=== PATIENT | female | born 1945 | race Caucasian/White ===

== ENCOUNTER 2019-01-30 18:15 | Emergency (ER) | payer MEDICARE ==
[~2019-01-30] VITALS: Ht 177.8 cm; Wt 86.4 kg
[2019-01-30] MEDS ORDERED: DIOVAN HCT PO (18:46)
[2019-01-30] MEDS ORDERED: RANITIDINE150 M1 PO (18:47)
[2019-01-30] MEDS ORDERED: ATORVASTATIN CA40 MG PO (18:47)
[2019-01-30] MEDS ORDERED: JANUVIA100 MG PO (18:48)
[2019-01-30] MEDS ORDERED: FLUOXETINE40 MG PO (18:48)
[2019-01-30] MEDS ORDERED: LUMIGAN0.01 % OD (18:49)
[2019-01-30] MEDS ORDERED: TIMOLOL 0.5%5 ML OD (18:50)
[2019-01-30 18:58] LABS: HEMOGLOBIN 12.4 g/dl (12.0-16.0); IMMATURE GRANULOCYTES 1.2 % (0.0-5.0); MEAN CELL VOLUME 95.8 fL CALC (80.0-100.0); MEAN CORPUSCULAR HGB 30.5 pG CALC (26.0-32.0); MEAN CORPUSCULAR HGB CONC 31.8 g/L CALC (32.0-36.0); NEUT# 7.4 thou/uL (2.00-7.15); RED BLOOD COUNT 4.07 mill/uL (4.20-5.60); RED CELL DISTRI WIDTH 15.9 % (11.5-15.5)
[2019-01-30 19:05] LABS: ALKALINE PHOSPHATASE 87 u/l (38-126); ANION GAP 16 (6-22 (CALC)); BILIRUBIN, TOTAL 1.3 mg/dL (0.0-1.4); BUN 16 mg/dL (8-23); BUN/CREATININE RATIO 22 (12-20 (CALC)); CARBON DIOXIDE 24 mmol/l (22-30); CHLORIDE 101 mmol/l (95-108); CREATININE 0.8 mg/dL (0.5-1.0); GFR > 60 ML/MIN (>=60 (CALC)); GFR FOR AFR.AMER. > 60 ML/MIN (>=60 (CALC)); LIPASE 106 u/l (23-300); POTASSIUM 4.1 mmol/l (3.5-5.1); SGOT/AST 18 u/l (9-36); SODIUM 137 mmol/l (137-146); TOTAL PROTEIN 6.5 g/dL (6.3-8.2)
[2019-01-30 19:34] LABS: URINE BILIRUBIN - DIPSTICK NEGATIVE (NEGATIVE); URINE BLOOD DIPSTICK LARGE (NEGATIVE); URINE COLOR YELLOW; URINE GLUCOSE - DIPSTICK NEGATIVE (NEGATIVE); URINE KETONE TRACE mg/dL (NEGATIVE); URINE LEUK ESTERASE TRACE (NEGATIVE); URINE NITRITE - DIPSTICK NEGATIVE (Negative); URINE PH 5.5 (4.5-8.0); URINE PROTEIN - DIPSTICK TRACE mg/dL (NEG-TRACE); URINE SPECIFIC GRAVITY 1.025; URINE UROBILINOGEN - DIPSTICK 0.2 E.U./dL (0.2)
[2019-01-30 19:44] LABS: URINE RBC TNTC RBC/hpf (0-5); URINE SQUAMOUS EPITHELIAL CELL FEW EPI/hpf (0-FEW)
[2019-01-30] MEDS ORDERED: CARAFATE1 GM PO (21:08)
[2019-01-30] MEDS ORDERED: REGLAN10 MG PO (21:08)
[2019-01-30 21:13] VITALS: BP 143/73
== END 2019-01-30 21:24 | disposition home or self-care (01) ==
LOC: ED 18:15
DX: R10.13 Epigastric pain (principal); R11.2 Nausea with vomiting, unspecified; R59.0 Localized enlarged lymph nodes; E11.9 Type 2 diabetes mellitus without complications; I10 Essential (primary) hypertension; K21.9 Gastro-esophageal reflux disease without esophagitis; C91.10 Chronic lymphocytic leukemia of B-cell type not having achieved remission